=== PATIENT | male | born 1980 | race Caucasian/White ===

== ENCOUNTER 2024-12-08 16:10 | Emergency (ER) | payer SELFPAY ==
[~2024-12-08] VITALS: Ht 266.7 cm; Wt 117.9 kg
[2024-12-08] MEDS ORDERED: LIDOCAINE 1%-EPI 1:100,000 20 ML VIAL ONE (16:46)
[2024-12-08] MEDS: LIDOCAINE 1%-EPI 1:100,000 20 ML VIAL TP ONE (16:59)
[2024-12-08] MEDS ORDERED: ACYC-108 PO (17:19)
[2024-12-08] MEDS ORDERED: SULF1TAB48 PO (17:19)
[2024-12-08] MEDS ORDERED: CEPH500T PO (17:19)
[2024-12-08 18:07] VITALS: BP 120/70; TEMP 98.4; O2SAT 99
== END 2024-12-08 18:08 | disposition home or self-care (01) ==
LOC: ER 16:40
DX: L02.211 Cutaneous abscess of abdominal wall (principal); R10.12 Left upper quadrant pain; B02.9 Zoster without complications; F17.200 Nicotine dependence, unspecified, uncomplicated; Z88.6 Allergy status to analgesic agent; Z90.49 Acquired absence of other specified parts of digestive tract
CPT/HCPCS: 99284; 10060; J3490